=== PATIENT | female | born 1990 | race Caucasian/White ===

== ENCOUNTER → 2017-05-09 | Outpatient (CLI) | payer MEDICAID ==
[~2017-05-09] MED LIST: CLARITIN 10MG T10 MG PO; COMPAZINE10 M1 PO; FERROUS SULFAT200 M1 PO; FLAGYL 500MG.500 MG PO; KEFLEX 500MG.500 MG PO; LODINE200 MG PO; MECLIZINE 25MG25 MG PO; NOMEDS *; PHENERGAN 25MG.25 M1 PO; PREDNISONE 10MG10 MG PO; PRENATAL PLUS1 TA1 PO; SEPTRA DS 800 M1 TAB PO
== END ==
LOC: LAB 15:09
DX: N39.0 Urinary tract infection, site not specified (principal)